=== PATIENT | male | born 1995 ===

== ENCOUNTER 2017-05-08 19:03 | Emergency (ER) | payer SELFPAY ==
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
[2017-05-08] MEDS ORDERED: cefTRIAXone (Rocephin) 250 mg Inj IM STA (20:22)
[2017-05-08] MEDS ORDERED: Lidocaine 1% Inj (20ml) ONE (20:34)
[2017-05-08 20:50] VITALS: BP 132/88; PULSE 88; RESP 16; TEMP 98.1; O2SAT 98
== END 2017-05-08 20:51 | disposition home or self-care (01) ==
LOC: ED 19:03
DX: Z20.2 Contact with and (suspected) exposure to infections with a predominantly sexual mode of transmission (principal); F17.210 Nicotine dependence, cigarettes, uncomplicated
CPT/HCPCS: 87491; 87591; 96372; 99282; J0696